=== PATIENT | female | born 1995 | race Caucasian/White ===

== ENCOUNTER 2021-08-20 17:37 | Emergency (ER) | payer MEDICAID ==
[~2021-08-20] VITALS: Ht 162.6 cm; Wt 70.0 kg
[2021-08-20 17:41] VITALS: BP 116/53
== END 2021-08-20 18:38 | disposition left against medical advice (07) ==
LOC: ER 17:37
DX: T85.698A Other mechanical complication of other specified internal prosthetic devices, implants and grafts, initial encounter (principal); Y82.8 Other medical devices associated with adverse incidents; Y92.018 Other place in single-family (private) house as the place of occurrence of the external cause; T81.30XA Disruption of wound, unspecified, initial encounter
CPT/HCPCS: 99281